=== PATIENT | female | born 1995 | race Caucasian/White ===

== ENCOUNTER 2019-11-02 02:00 | Inpatient (IN) | payer MEDICAID, SELFPAY ==
[2019-11-02] VITALS (133 sets, daily range): BP systolic 0–177; BP diastolic 0–108; PULSE 57–112; RESP 16–20; TEMP 36.3–38.6; O2SAT 99–100; BMI 37.2
[2019-11-02] MEDS: dextrose 5%-lactated ringers 1,000 ML 125 ML IV ×2 (02:45→15:48)
[2019-11-02] MEDS: ampicillin 2,000 MG in sodium chloride 0.9% (plus) 50 ML 100 MG IV (02:46)
[2019-11-02 02:52] LABS: Basophils % 0.1 %; Eosinophils % 0.1 %; Hematocrit 37.3 % (37.0-47.0); Hemoglobin 12.5 g/dL (11.5-15.3); Lymphocytes # 1.6 10^3/uL (0.8-4.8); Mean Corpuscular HGB Conc 33.5 g/dL (30.0-36.0); Mean Corpuscular Hemoglobin 30.3 pg (28.0-34.0); Mean Corpuscular Volume 90.5 fL (81-99); Mean Platelet Volume 11.3 fL (7.4-10.4); Monocytes % 3.8 %; Neutrophils # 23.4 10^3/uL (1.8-7.7); Neutrophils % 89.2 %; Nucleated Red Blood Cells % 0 %; Platelet Count 265 10^3/cmm (130-400); Red Blood Count 4.12 10^6/uL (4.1-5.3); Red Cell Distribution Width 14.2 % (12.1-15.1); White Blood Count 26.2 10^3/uL (4.0-10.0)
[2019-11-02] MEDS: fentaNYL 50 mcg/mL INJ 2mL IV ×6 (03:49→09:49)
[2019-11-02] MEDS: ampicillin 1,000 MG in sodium chloride 0.9% (plus) 50 ML 100 MG IV ×4 (05:56→18:09)
--- NOTE | 2019-11-02 07:39 | PC.NURSE ---
URGED PT TO CHANGE POSITION FREQUENTLY, DISCUSSED IMPORTANCE OF POSITION CHANGES IN LABOR/DELIVERY, ALSO DISCUSSED PAIN MED ADMINISTRATION. UNDERSTANDING VOICED, PT REFUSING ANY POSITION OTHER THAN THRONE AT THIS TIME. DISCUSSED WITH PT SHE CAN HAVE FENTANYL PER PROTOCOL AND THEN WE NEEDED TO TRY POSITION CHANGES, PT AGREED. ICE CHIPS PROVIDED
[2019-11-02] MEDS: dextrose 5%-lactated ringers 1,000 ML 500 ML IV (08:52)
[2019-11-02] MEDS: lactated ringers 1,000 ML 999 ML IV ×4 (09:27→21:55)
--- NOTE | 2019-11-02 10:14 | PC.NURSE ---
Dr Andino called for epidural placement
--- NOTE | 2019-11-02 10:40 | ANES.PREANE2 ---
Pre-Anesthetic Assessment Pre-Anesthetic Assessment: Height/Weight: Height 1.55 m Weight 89.358 kg Temp Pulse Resp BP Pulse Ox 99.1 F 66 17 156/73 99 11/02/19 11:47 11/02/19 11:41 11/02/19 11:47 11/02/19 11:41 11/02/19 11:35 Preop Diagnosis: IUP Proposed Procedure: labor epidural Was Beta Nikki taken within 24 hours: N/A Social: Social History: No alcohol and No tobacco Exam: Pre-Anes Outpt Exam: alert, oriented x 3, clear to auscultation bilaterally and regular rate & rhythm Airway: Submandibular: WNL Cervical ROM: WNL MP: 2 History/ROS: No significant history except as noted Pulmonary: Pulmonary: None reported CV/HEM: CV/HEM: None reported : : None reported Hepatic: Hepatic: None reported GI: GI: None reported Metabolic: Metabolic: Thyroid Musc/skel: Musc/skel: None reported Neuropsych: Neuropsych: None reported Anesthetic Plan: ASA status: 2 Anesthesia: Anesthesia Evaluation and MAC Risk of > 500 ml blood loss (7ml/kg in children): No Meds/Allergies Current Medications: Current Medications Generic Name Dose Route Start Last Admin Trade Name Freq PRN Reason Stop Dose Admin Fentanyl 25 - 100 mcg 11/02/19 01:59 11/02/19 09:49 Sublimaze IV 100 mcg Q1H PRN Administration SEVERE PAIN Lactated Ringer's 1,000 mls @ 999 m ls/hr 11/02/19 01:59 11/02/19 10:34 Lactated Ringers IV 999 mls/hr .Q1H1M PRN Administration Per L&D Rescitati on Protocol Ampicillin Sodium 1,000 mg/ 50 mls @ 100 mls/ hr 11/02/19 06:01 11/02/19 10:13 Sodium Chloride IV Infused Q4H PHILIP Infusion Protocol Ampicillin Sodium 2,000 mg/ 50 mls @ 100 mls/ hr 11/02/19 02:00 11/02/19 02:46 Sodium Chloride IV 100 mls/hr ONCE PHILIP Administration Protocol Dextrose/Lactated Ringer's 1,000 mls @ 125 m ls/hr 11/02/19 02:00 11/02/19 08:52 Dextrose 5%-Lact ated Ringers IV 500 mls/hr .Q8H PHILIP Administration Ropivacaine 200 mg in 100 mls @ 6 mls/hr 11/02/19 08:45 11/02/19 11:44 Naropin Premix EPIDURAL 13 mls/hr .[id number] PHILIP Administration PFSH Anesthesia Female Reproductive History: : 1 Data Anesthesia CBC & Chem 7: 11/02/19 02:10 Other Labs: Laboratory Results - last 48 hr 11/02/19 02:10 WBC 26.2 H RBC 4.12 Hgb 12.5 Hct 37.3 MCV 90.5 MCH 30.3 MCHC 33.5 RDW 14.2 Plt Count 265 MPV 11.3 H Neut % (Auto) 89.2 Lymph % (Auto) 6.0 [place] % (Auto) 3.8 Eos % (Auto) 0.1 Baso % (Auto) 0.1 Neut # (Auto) 23.4 H Lymph # (Auto) 1.6 [place] # (Auto) 1.0 H Eos # (Auto) 0.0 Baso # (Auto) 0.0 Nucleated RBC % (auto) 0 Nucleated RBCs # 0.0 Cardiac Studies: No Data to Display
--- NOTE | 2019-11-02 11:07 | ANES.PROC ---
Anesthesia Procedures Procedure/Date: 11/02/19 Epidural: Time Out Performed: Yes Consents Signed: Procedure Consent Consent: requested by attending/covering physician Lumbar Level: L3-L4 Epidural position: sitting Epidural procedure: sterile prep of area, 1% lidocaine to numb the area, 18 g needle, negative for paresthesia passed, neg for paresthesia, test dose given, 1.5% xylocaine 1:200k epi (4ml), placed PCEA, no systemic response, sterile dressing applied, L.U.D. no apparent complications and 0.2% Ropiavacaine @ mls/hr (13)
[2019-11-02] MEDS: oxytocin 30 UNIT/500 ML BAG IV (13:04)
[2019-11-02] MEDS: acetaminophen 325 mg Tablet 650 MG PO (20:42)
[2019-11-02 21:02] LABS: Basophils # 0.1 10^3/uL (0.0-0.1); Basophils % 0.2 %; Eosinophils # 0.1 10^3/uL (0.0-0.8); Eosinophils % 0.2 %; Hematocrit 35.5 % (37.0-47.0); Hemoglobin 11.6 g/dL (11.5-15.3); Lymphocytes # 1.4 10^3/uL (0.8-4.8); Lymphocytes % 4.3 %; Mean Corpuscular HGB Conc 32.7 g/dL (30.0-36.0); Mean Corpuscular Hemoglobin 30.4 pg (28.0-34.0); Mean Corpuscular Volume 92.9 fL (81-99); Mean Platelet Volume 11.3 fL (7.4-10.4); Monocytes # 1.3 10^3/uL (0.2-0.9); Monocytes % 3.9 %; Neutrophils # 29.7 10^3/uL (1.8-7.7); Neutrophils % 90.8 %; Nucleated Red Blood Cells % 0 %; Platelet Count 243 10^3/cmm (130-400); Red Blood Count 3.82 10^6/uL (4.1-5.3); Red Cell Distribution Width 14.7 % (12.1-15.1)
[2019-11-02 21:38] LABS: White Blood Count 32.7 10^3/uL (4.0-10.0)
[2019-11-02] MEDS: metoclopramide 5 mg/mL SDV 2 mL 10 MG IVP (22:05)
[2019-11-02] MEDS: citric acid-sodium citrate 30 mL UDC PO (22:05)
--- NOTE | 2019-11-02 22:26 | PM.OBGYHP ---
Providers/Chief Complaint Admitting Physician: Glen Atwood MD Primary Care Provider: Alexandra Clemons DO Chief Complaint: labor HPI REGIONAL OPERATIONS MANAGER History of Present Illness Teresita Vega is a 24 year old 1 40-week and 2-day female who presented to the hospital in active labor. Shortly after arrival she had spontaneous rupture of membranes approximately 21 hours prior to delivery. Meconium was noted an epidural was placed later on. She was noted to have multiple fevers after the epidural had been placed. Pitocin was placed to augment her labor. Despite those interventions, she has progressed to 6-7 cm and maintained at 6-7 cm for 6 hours without making further progress. The baby continued to have space between the baby's head and the cervix. Because of the patient's lack of progress, as well as multiple other factors including fever, elevated white blood Cell count, and lack of cervical change the decision was made to proceed with a section. Present Details : 1 Labs Rubella: Non-Immune RPR: Negative GBS: Positive Review of Systems General: Reports: 10 or more systems reviewed and unremarkable except in HPI and below Const: Reports: fever Card: Denies: chest pain or irregular heart rhythm Resp: Denies: shortness of breath Medications/Allergies Home Medications Medication Instructions Recorded Confirmed Last Taken Type [place] Thyroid 11/02/19 10/26/19 History [id number] fumarate-FA tab PO 11/02/19 10/26/19 History [] Allergies Allergy/AdvReac Type Severity Reaction Status Date / Time No Known Allergies Allergy Verified 11/02/19 00:41 Vitals/I&O/Wt Last Vital Signs Temp 100.5 F H 11/02/19 19:57 Pulse 83 11/02/19 22:11 Resp 17 11/02/19 17:46 BP 133/76 11/02/19 22:11 Pulse Ox 99 11/02/19 11:35 11/02/19 11/02/19 11/02/19 06:59 14:59 22:59 Intake Total 250 / 250 3059.284 / 3059.284 1158.9 / 4218.184 Output Total 600 / 600 Balance 250 / 250 3059.284 / 3059.284 558.9 / 3618.184 Weight last 48 hrs Weight 197 lb Weight 197 lb Weight 197 lb Weight 197 lb Physical Exam Const: COMMON NORMALS: oriented x3 and alert HENMT: COMMON NORMALS: moist oral mucous membranes HEAD & SCALP: normal to inspection Chest: COMMONS NORMALS: inspection of chest normal Resp: COMMON NORMALS: clear to auscultation bilaterally AUSCULTATION: clear to auscultation bilaterally Cardio: COMMON NORMALS: regular rate and regular rhythm RATE: regular rate RHYTHM: regular rhythm GI: INSPECTION: Yes normal to inspection and Yes other (Gravid) Extremity: COMMON NORMALS: normal to inspection GENERAL: Yes edema (Trace) Neuro: COMMON NORMALS: oriented x3, moves all extremities and no sensory deficits noted SENSORIUM/ORIENTATION: Yes alert Psych: COMMON NORMALS: mental status grossly normal Skin: COMMON NORMALS: no rashes or lesions noted GENERAL SKIN EXAM: no rashes or lesions noted Urinary Catheter Management^: Catalan: Cath Placed During This Visit: yes Reason for Continuing Indwelling Catheter: Other Urinary Catheter Date of Insertion: 11/02/19 Urinary Catheter Time of Insertion: 11:24 Data : 11/02/19 20:30 A&P Assessment and plan (1) 39 weeks gestation of : Status: Acute (2) Failure to progress in labor: I discussed the reasons for proceed with a with the patient her and her mother who is on cell phone. We also discussed the risks of bleeding, infection, and damage to intra-abdominal organs. The patient understands the risks and wished to proceed. Status: Acute (3) Maternal fever during labor: Status: Acute Attestations Medical Necessity Statement*: I anticipate routine and post care. Coding Level of Care Code Acute Ict Customer Support Officer for Chg Fwd Diagnoses 39 weeks gestation of Z3A.39 Failure to progress in labor O62.2 Maternal fever during labor O75.2
--- NOTE | 2019-11-02 23:50 | ANE.PACU2 ---
 Inpatient post-anesthesia follow up: Airway intact: Yes Vital signs: Temperature 100.5 F Pulse Rate 75 Respiratory Rate 17 Blood Pressure 142/71 Pulse Oximetry 99 Oxygen Delivery Me thod Room Air Oxygen Flow Rate Fraction of Inspir ed Oxygen Hydration adequate: Yes Nausea and vomiting: No Mental status: Baseline
--- NOTE | 2019-11-02 23:53 | PM.OP ---
Operative Report Date of procedure: November 02, 2019 Pre-op Diagnosis: 1. 40-week gestation age female 2. Failure to progress 3. Maternal fever Post-op diagnosis: same Procedure Done: Low transverse section Specimens removed/disposition: 1. Male with a weight of 8 pounds 6 ounces and Apgars of 8 9 2. Placenta with a three-vessel cord delivered intact Pathology: none sent Surgeon: Glen Atwood Anesthesia: Epidural Estimated blood loss (mL): 1,200 IV fluids (mL): 1,200 Complications: None Condition: stable Disposition: floor Brief History: Refer to history and physical Procedure: The patient was brought back to the operating room where she was prepped and draped in usual sterile fashion. Anesthesia was found to be adequate. A lower transverse skin incision was then made with a #10 blade. I then dissected down to the underlying subcutaneous tissue until arriving at the prerectal fascia. The fascia was then nicked with the scalpel bilaterally. The fascial incisions were then carried laterally with Jensen scissors. Attention was then turned to the superior aspect of the incision which was grasped with kochers and tented up away from the underlying rectus abdominis muscles. The muscles were then dissected away from the fascia manually, and later with Jensen scissors. Attention was then turned to the inferior aspect of the incision, and the fascia was dissected away from the underlying muscle in similar fashion. The rectus abdominis muscles were then spread manually. The peritoneum was entered manually. Excellent visualization of the uterus was noted. A lower transverse uterine incision was then made with a #10 blade. Upon arriving at the intrauterine cavity, the uterine incision was then extended manually. The was noted to be in vertex position. The baby was delivered without difficulty. After delivery of the head, the mouth and nose were suctioned at the site of the incision. There was no meconium. There was no nuchal cord. The remainder of the body was then delivered and placed on the abdomen. The cord was cut and clamped. The baby was then handed to the waiting nurse. The placenta was removed intact. The uterus was externalized. The intrauterine cavity was cleansed of any remaining debris. The uterine incision was reapproximated in 2 layers. The first layer was performed with 0 Vicryl in a running locked stitch. The second layer was an imbricating stitch also using 0 Vicryl. The uterus was replaced into the abdomen. The peritoneum was then irrigated with warm saline. I reexamined the uterine incision and found it to be hemostatic. The rectus abdominis muscles were then reapproximated using 0 Vicryl in a running stitch. The fascia was then reapproximated using 0 Vicryl in running stitch. The subcutaneous tissue was then reapproximated using 0 Vicryl in a running stitch. The skin was reapproximated using leidy. A sterile dressing was placed. All counts were correct x2. Both the mother and baby were in stable condition.
[2019-11-03] VITALS (21 sets, daily range): BP systolic 93–128; BP diastolic 57–83; PULSE 75–128; RESP 16–18; TEMP 36.4–37.2; O2SAT 95–100
[2019-11-03] MEDS: dextrose 5%-lactated ringers 1,000 ML 125 ML IV (04:31)
[2019-11-03] MEDS: ketorolac 30 mg/mL INJ IVP (06:04)
[2019-11-03 13:09] LABS: Hematocrit 28.1 % (37.0-47.0); Hemoglobin 8.9 g/dL (11.5-15.3); Mean Corpuscular HGB Conc 31.7 g/dL (30.0-36.0); Mean Corpuscular Hemoglobin 29.8 pg (28.0-34.0); Mean Platelet Volume 11.1 fL (7.4-10.4); Platelet Count 256 10^3/cmm (130-400); Red Blood Count 2.99 10^6/uL (4.1-5.3); Red Cell Distribution Width 14.8 % (12.1-15.1); White Blood Count 25.6 10^3/uL (4.0-10.0)
--- NOTE | 2019-11-04 07:04 | ANE.PACU2 ---
 Inpatient post-anesthesia follow up: Airway intact: Yes Vital signs: Temperature 97.5 F Pulse Rate 100 Respiratory Rate 16 Blood Pressure 101/66 Pulse Oximetry 96 Oxygen Delivery Me thod Room Air Oxygen Flow Rate 97 Fraction of Inspir ed Oxygen Hydration adequate: Yes Mental status: Baseline Additional Comments: no signs of infection at neuraxial site, no lower extremity weakness, no difficulty urinating, no headaches. patient informed of red flags to watch out for (loss of bowel or bladder control, increased lower extremity weakness, fever, or signs of infection at epidural site), in setting of increased WBC plus subsequent development of fever during labor. Patient informed to go to to ER if any of these s/s develop.
--- NOTE | 2019-11-04 08:06 | PM.OBGYDC ---
Discharge Providers WAITER/WAITRESS FIRST CLASS Date of Admission: 11/02/19 02:00 Date of Discharge: 11/04/19 Attending Provider at Admission: Glen Atwood MD Attending Provider at Discharge: Glen Atwood MD Primary Care Provider: Alexandra Clemons DO Diagnoses at Discharge Discharge Diagnosis (1) 39 weeks gestation of : Status: Acute (2) Failure to progress in labor: Status: Acute (3) Maternal fever during labor: Status: Acute Reason for Visit Reason for Visit: Reason For Visit: labor Hospital Course Hospital Course: The patient presented to the hospital in active labor. Spontaneous rupture membranes occurred. An epidural was placed. The patient then progressed to 6 to 7 cm. She then stalled out at that point for about 6 hours. She had a fever as well as an elevating white blood count. The baby's head was also not firmly against the cervix. Given the amount of time that the patient was in labor, as well as the other concerns regarding her fever and her white blood count, the decision was made to proceed with a section. The was unremarkable. The patient's course was also unremarkable. She had no further fevers after the . She advanced her diet well. She passed flatus. Her pain was well controlled. Her bleeding was within normal limits. Information Peripartum Data: Delivery Method: Section Physical Exam Narrative: EXAM NARRATIVE: She is in no acute distress Lungs are clear auscultation bilaterally Her heart has a regular rate and rhythm Her fundus is below the umbilicus and firm Her dressing is clean, dry and intact Her extremities have trace edema Urinary Catheter Management^: Catalan: Cath Placed During This Visit: yes, but has since been removed by the nurse Reason for Continuing Indwelling Catheter: Decision to DC Catheter Urinary Catheter Date of Insertion: 11/02/19 Urinary Catheter Time of Insertion: 11:24 Date Urinary Catheter Removed: 11/03/19 Time Urinary Catheter Discontinued: 10:48 Discharge Data Data Completed and Pending: Labs from last 24 hours 11/03/19 12:55 WBC 25.6 H RBC 2.99 L Hgb 8.9 L Hct 28.1 L MCV 94.0 MCH 29.8 MCHC 31.7 RDW 14.8 Plt Count 256 MPV 11.1 H Vitals: Last Vital Signs Temp 97.5 F L 11/03/19 22:00 Pulse 100 11/03/19 22:00 Resp 16 11/03/19 22:00 BP 101/66 11/03/19 22:00 Pulse Ox 96 11/03/19 22:00 Discharge Plan Discharge Patient Disposition: Home, Self-Care Condition: Stable Prescriptions: New ibuprofen 800 mg Tablet 800 mg PO TID Qty: 45 RF: 0 hydrocodone-acetaminophen 5-325 mg Tablet 1 - 2 tab PO Q6H PRN (Reason: Moderate To Severe Pain) Qty: 30 RF: 0 Continued 28-800 mg-mcg Tablet 1 tab PO DAILY RF: 0 levothyroxine 88 mcg Tablet 88 mcg PO DAILY RF: 0 Discharge Orders: Discharge Order (Routine); Ordered 11/04/19 Ordered By: Glen Atwood Referrals: Glen Atwood MD [Family Provider] - 11/10/19 8:45 am Discharge Diet: Advance as tolerated Discharge Activity: Limit activity as instructed Patient Instructions: Sponge Bathing Your Baby (GEN), Tub Bathing Your Baby (GEN), Shaken Baby Syndrome (GEN), Breast Care for the Non-breast Feeding Woman (GEN), OB - Lucho, OB Discharge Report, OB Food/Drug Interaction Guide Discharge Date/Time: 11/04/19 14:15 Discharge Attestations WAITER/WAITRESS FIRST CLASS Time Spent in Discharge Care*: less than 30 min Coding Level of Care Code Acute Rental Sales Representative for Chg Fwd Diagnoses 39 weeks gestation of Z3A.39 Failure to progress in labor O62.2 Maternal fever during labor O75.2
[2019-11-04] MEDS: prenatal vitamin Capsule 1 CAP PO (10:26)
[2019-11-04] MEDS: docusate sodium 100 mg Capsule PO (10:26)
[2019-11-04 10:29] VITALS: BP 112/75; PULSE 90; RESP 17; TEMP 36.6; O2SAT 98
[2019-11-04] MEDS: measles,mumps,rubella pf Vial (w/diluent) 0.5 ML SUBCUT (12:18)
[2019-11-04 14:00] VITALS: BP 125/71; PULSE 79; RESP 18; TEMP 36.9; O2SAT 98
[2019-11-04 14:10] VITALS: BP 125/71; PULSE 79; RESP 18; TEMP 36.9; O2SAT 98
== END 2019-11-04 14:15 | disposition home or self-care (01) | DRG 787 ==
LOC: OPOB 07:10
PROVIDERS: Admitting Provider Family Medicine; Family Provider Family Medicine; PCP Family Medicine; Visit Provider Family Medicine
PROC: 10D00Z1 Extraction of Products of Conception, Low, Open Approach (ICD-10-PCS; CPT 59514; principal; 2019-11-02 22:30)
DX: O32.4XX0 Maternal care for high head at term, not applicable or unspecified (principal); O75.2 Pyrexia during labor, not elsewhere classified; O99.284 Endocrine, nutritional and metabolic diseases complicating childbirth; E03.9 Hypothyroidism, unspecified; Z3A.40 40 weeks gestation of pregnancy; Z37.0 Single live birth
CPT/HCPCS: 12345; 36415; 51702; 59409; 85025; 85027; 90707; 96372; 96374; 96375; 99211; J0290; J0690; J1885; J2001; J2274; J2590; J2765; J2795; J3010

== ENCOUNTER 2021-04-10 04:55 | Inpatient (IN) | payer BC, MEDICAID, SELFPAY ==
--- NOTE | 2021-03-22 12:46 | ANES.PREANE2 ---
Pre-Anesthetic Assessment Pre-Anesthetic Assessment: Height/Weight: Height 1.55 m Preop Diagnosis: 1. 40-week gestation age female 2. Failure to progress 3. Maternal fever Proposed Procedure: Operation Date: 04/10/21 07:00 Proposed Procedures p Section Repeat With Tubal Z98.891 [id number](Not Applicable) - Glen Atwood MD Familial anesthetic complications: None Social: Social History: No alcohol and No tobacco Exam: Pre-Anes Outpt Exam: alert, oriented x 3, clear to auscultation bilaterally and regular rate & rhythm Airway: Cervical ROM: WNL MP: 2 Dentition: Other (missing) Metabolic: Metabolic: Morbid obesity and Thyroid Anesthetic Plan: ASA status: 3 Anesthesia: Regional (specify below) (spinal) Risk of > 500 ml blood loss (7ml/kg in children): Yes, adequate IV access and fluids planned Data Anesthesia Cardiac Studies: No Data to Display
--- NOTE | 2021-03-31 16:22 | PC.RESP ---
SMOKING CESSATION INFORMATION SENT TO PATIENT.
[2021-04-10] VITALS (28 sets, daily range): BP systolic 77–134; BP diastolic 56–98; PULSE 59–106; RESP 16; TEMP 36.2–37.4; O2SAT 96–100; BMI 31.2
[2021-04-10 05:35] LABS: Basophils % 0.2 %; Eosinophils # 0.1 10^3/uL (0.0-0.8); Eosinophils % 1.3 %; Hematocrit 31.2 % (37.0-47.0); Hemoglobin 9.7 g/dL (11.5-15.3); Lymphocytes # 2.4 10^3/uL (0.8-4.8); Lymphocytes % 22.5 %; Mean Corpuscular HGB Conc 31.1 g/dL (30.0-36.0); Mean Corpuscular Hemoglobin 25.9 pg (28.0-34.0); Mean Corpuscular Volume 83.2 fl (81-99); Mean Platelet Volume 10.8 fL (7.4-10.4); Monocytes # 0.6 10^3/uL (0.2-0.9); Monocytes % 5.4 %; Neutrophils # 7.63 10^3/uL (1.8-7.7); Neutrophils % 70.3 %; Nucleated Red Blood Cells % 0 %; Platelet Count 316 10^3/cmm (130-400); Red Blood Count 3.75 10^6/uL (4.1-5.3); Red Cell Distribution Width 13.9 % (12.1-15.1); White Blood Count 10.9 10^3/uL (4.0-10.0)
[2021-04-10] MEDS: lactated ringers 1,000 ML 999 ML IV ×3 (05:38→09:08)
[2021-04-10] MEDS: citric acid-sodium citrate 30 mL UDC PO (06:36)
[2021-04-10] MEDS: famotidine 20 mg/2 mL INJ IVP (06:36)
[2021-04-10] MEDS: metoclopramide 5 mg/mL SDV 2 mL 10 MG IVP (06:37)
--- NOTE | 2021-04-10 06:43 | PM.OPHPUD ---
Labor & Delivery H&P Update Date of Procedure: April 10, 2021 Date H&P Performed: 04/07/21 H&P update information: I have reviewed H&P completed within last 30 days, I have examined patient prior to procedure, No changes to prior documentation and H&P to be scanned into chart Preop diagnosis: 39-week gestation female presenting for a repeat section and a tran Planned procedure: Operation Date: 04/10/21 07:00 Proposed Procedures p Section Repeat With Tubal Z98.891 [id number](Not Applicable) - Glen Atwood MD Related Problem List Diagnoses (1) 39 weeks gestation of : (2) History of : (3) Encounter for sterilization:
--- NOTE | 2021-04-10 06:48 | P.ANESUD_ITS ---
Pre-Anesthetic Update Pre-Anesthetic Assessment: Date of Surgery/Procedure: 04/10/21 Preop Suzi gnosis: 39-week gestation female presenting for a repeat section and a tran Proposed Procedure: Operation Date: 04/10/21 07:00 Proposed Procedures p Section Repeat With Tubal Z98.891 [id number](Not Applicable) - Glen Atwood MD Any changes to Pre-Anesthetic Assessment?: No Last Intake: Intake Last Liquid Date 04/09/21 Last Liquid Time 21:00 Last Solid Date 04/09/21 Last Solid Time 21:00 Labs Last 48hrs: Laboratory Results - last 48 hr 04/10/21 04/10/21 05:25 05:25 WBC 10.9 H RBC 3.75 L Hgb 9.7 L Hct 31.2 L MCV 83.2 MCH 25.9 L MCHC 31.1 RDW 13.9 Plt Count 316 MPV 10.8 H Neut % (Auto) 70.3 Lymph % (Auto) 22.5 [place] % (Auto) 5.4 Eos % (Auto) 1.3 Baso % (Auto) 0.2 Neut # (Auto) 7.63 Lymph # (Auto) 2.4 [place] # (Auto) 0.6 Eos # (Auto) 0.1 Baso # (Auto) 0.0 Nucleated RBC % (a uto) 0 Nucleated RBCs # 0.0 Blood Type A Positive Rho(D) Type Positive Antibody Screen Negative Vitals: Pulse Rate 74 04/10/21 05:02 Pulse Rhythm 04/10/21 05:45 Pulse Strength 3+ Normal 04/10/21 05:45 Respiratory Effort Non-Labored 04/10/21 05:45 Respiratory Depth Normal 04/10/21 05:45 Respiratory Patter n 04/10/21 05:45 Blood Pressure 127/83 04/10/21 05:02 Oxygen Delivery Me thod 04/10/21 05:45 Exam: Pre-Anes Outpt Exam: alert, oriented x 3, clear to auscultation bilaterally and regular rate & rhythm Cardiac Studies: No Data to Display
--- NOTE | 2021-04-10 08:11 | PM.PACU ---
PACU note PACU note: VSS, Good respiratory effort, report to OPERATOR AUTOMATED PROCESS Post-Anesthesia Exam: awake
--- NOTE | 2021-04-10 08:11 | P.PCN_ITS ---
PACU note PACU note: VSS, Good respiratory effort, report to PARTS CATALOGER Post-Anesthesia Exam: awake
--- NOTE | 2021-04-10 08:32 | P.OP_ITS ---
Operative Report Date of procedure: April 10, 2021 Pre-op Diagnosis: 39-week gestation female presenting for a repeat section and a tran Post-op diagnosis: same Procedure Done: 1. Repeat section 2. intraoperative bilateral tubal ligation Specimens removed/disposition: 1. Male with Apgars of 6 8 and 9 and a weight of 6 pounds 14 ounces Pathology: none sent Surgeon: Glen Atwood Anesthesia: Other (Spinal) Estimated blood loss (mL): 600 Complications: None Condition: stable Disposition: floor (Obstetric) Procedure: The patient was brought back to the operating room where she was prepped and draped in usual sterile fashion. Anesthesia was found to be adequate. A lower transverse skin incision was then made with a #10 blade. I then dissected down to the underlying subcutaneous tissue until arriving at the prerectal fascia. The fascia was then nicked with the scalpel bilaterally. The fascial incisions were then carried laterally with Jensen scissors. Attention was then turned to the superior aspect of the incision which was grasped with kochers and tented up away from the underlying rectus abdominis muscles. The muscles were then dissected away from the fascia manually, and later with Jensen scissors. Attention was then turned to the inferior aspect of the incision, and the fascia was dissected away from the underlying muscle in similar fashion. The rectus abdominis muscles were then spread manually. The peritoneum was entered manually. Excellent visualization of the uterus was noted. A lower transverse uterine incision was then made with a #10 blade. Upon arriving at the intrauterine cavity, the uterine incision was then extended manually. The amniotic sac was ruptured with Allises. The was noted to be in vertex position. The baby was delivered without difficulty. After delivery of the head, the mouth and nose were suctioned at the site of the incision. There was no meconium. There was no nuchal cord. The remainder of the body was then delivered and placed on the abdomen. The cord was cut and clamped. The baby was then handed to the waiting nurse. The placenta was removed intact. The uterus was externalized. The intrauterine cavity was cleansed of any remaining debris. The uterine incision was reapproximated in 2 layers. The first layer was performed with 0 Vicryl in a running locked stitch. The second layer was an imbricating stitch also using 0 Vicryl. Attention was then turned to the left fallopian tube which was ligated cut and cauterized in a modified [place] fashion. Attention was then turned to the right fallopian tube which was also ligated cut and cauterized in similar fashion. The uterus was replaced into the abdomen. The peritoneum was then irrigated with warm saline. I reexamined the uterine incision and found it to be hemostatic. The rectus abdominis muscles were then reapproximated using 0 Vicryl in a running stitch. The fascia was then reapproximated using 0 Vicryl in running stitch. The skin was reapproximated using leidy. A sterile dressing was placed. All counts were correct x2. Both the mother and baby were in stable condition. Associated Problem List Diagnoses (1) Encounter for sterilization: (2) History of :
[2021-04-10] MEDS: docusate sodium 100 mg Capsule PO ×2 (10:39→18:24)
[2021-04-10] MEDS: dextrose 5%-lactated ringers 1,000 ML 125 ML IV (12:07)
[2021-04-10] MEDS: ketorolac 30 mg/mL INJ IVP (15:58)
[2021-04-10] MEDS: ferrous sulfate EC 325 mg Tablet PO (18:24)
[2021-04-10] MEDS: ibuprofen 800 mg tablet PO (21:42)
[2021-04-11 01:07] LABS: Hematocrit 22.3 % (37.0-47.0); Hemoglobin 6.9 g/dL (11.5-15.3); Mean Corpuscular HGB Conc 30.9 g/dL (30.0-36.0); Mean Corpuscular Hemoglobin 26.1 pg (28.0-34.0); Mean Corpuscular Volume 84.5 fl (81-99); Mean Platelet Volume 10.4 fL (7.4-10.4); Platelet Count 207 10^3/cmm (130-400); Red Blood Count 2.64 10^6/uL (4.1-5.3); Red Cell Distribution Width 14.1 % (12.1-15.1); White Blood Count 11.7 10^3/uL (4.0-10.0)
[2021-04-11 01:15] VITALS: BP 115/89; PULSE 74; RESP 16; TEMP 36.6; O2SAT 98
[2021-04-11] MEDS: HYDROcodone-acetaminophen 5-325 mg Tablet PO (03:04)
[2021-04-11 04:15] VITALS: BP 119/77; PULSE 83; RESP 15; TEMP 36.6; O2SAT 97
--- NOTE | 2021-04-11 08:04 | P.DS_ITS ---
Discharge Providers REIKI PRACTITIONER Date of Admission: 04/10/21 04:55 Date of Discharge: 04/13/21 Attending Provider at Admission: Glen Atwood MD Attending Provider at Discharge: Glen Atwood MD Primary Care Provider: Glen Atwood MD Diagnoses at Discharge Discharge Diagnosis (1) Encounter for sterilization: Status: Resolved (2) History of : Status: Resolved Reason for Visit Reason for Visit: Hospital Course Hospital Course The patient presented to the hospital for a repeat scheduled and tubal ligation. Her procedure was unremarkable. Her course was also unremarkable. Her bleeding was within normal limits. Her pain was well controlled. She passed flatus. She tolerated a regular diet without difficulty. Information Peripartum Data: Infant Delivery Method: Physical Exam Narrative: EXAM NARRATIVE: She is in no acute distress Lungs are clear auscultation bilaterally Her heart has a regular rate and rhythm Her fundus is below the umbilicus and firm Her dressing is clean, dry and intact Her extremities have trace edema Urinary Catheter Management^: Catalan: Cath Placed During This Visit: yes, but has since been removed by the nurse Reason for Continuing Indwelling Catheter: Accurate Measurement of Urinary Output in Critically Ill Patients Urinary Catheter Date of Insertion: 04/10/21 Urinary Catheter Time of Insertion: 07:05 Date Urinary Catheter Removed: 04/11/21 Time Urinary Catheter Discontinued: 00:00 Discharge Data Data Completed and Pending: Pending at discharge Category Date Time Status Pathology: Surgic al [PTH] Routine Pth 04/10/21 07:41 Received Labs from last 24 hours 04/11/21 01:00 WBC 11.7 H RBC 2.64 L Hgb 6.9 L Hct 22.3 L MCV 84.5 MCH 26.1 L MCHC 30.9 RDW 14.1 Plt Count 207 D MPV 10.4 Vitals: Last Vital Signs Temp 97.9 F 04/11/21 04:15 Pulse 83 04/11/21 04:15 Resp 15 04/11/21 04:15 BP 119/77 04/11/21 04:15 Pulse Ox 97 04/11/21 04:15 Discharge Plan Discharge Patient Disposition: Home Condition: Stable Prescriptions: New ibuprofen 800 mg Tablet 800 mg PO TID Qty: 45 RF: 0 hydrocodone-acetaminophen 5-325 mg Tablet 1 tab PO Q4H PRN (Reason: Moderate To Severe Pain) Qty: 28 RF: 0 ferrous sulfate 325 mg (65 mg iron) Tablet,Delayed Release (Dr/Ec) 325 mg PO BID Qty: 60 RF: 1 Continued 28-800 mg-mcg Tablet 1 tab PO DAILY RF: 0 levothyroxine 88 mcg Tablet 88 mcg PO DAILY RF: 0 Discontinued ibuprofen 800 mg Tablet 800 mg PO TID Qty: 45 RF: 0 hydrocodone-acetaminophen 5-325 mg Tablet 1 - 2 tab PO Q6H PRN (Reason: Moderate To Severe Pain) Qty: 30 RF: 0 Discharge Orders: Discharge Order (Routine); Ordered 04/11/21 Ordered By: Glen Atwood Referrals: Glen Atwood MD [Primary Care Provider] - 04/18/21 8:30 am (4-7 day appointment his on 04/18/2021 at 8:30 am. 6 week appointment is scheduled on 05/23/2021 at 11:45 am . ) Discharge Diet: Usual diet Discharge Activity: Limit activity as instructed Patient Instructions: Depression (GEN), Preeclampsia During (DC), Bleeding (DC), OB - Angelic/Ollie, OB Discharge Report, OB Anesthesia Instructions, OB Food/Drug Interaction Guide, Opioid Safety, OB Home Care, OB Proud Parent Packet Discharge Attestations REIKI PRACTITIONER Time Spent in Discharge Care*: less than 30 min Coding Level of Care Code Acute Machine Cloth Measurer for Marissag Fwd Diagnoses Encounter for sterilization Z30.2 History of Z98.891
[2021-04-11] MEDS: ibuprofen 800 mg tablet PO (09:46)
[2021-04-11] MEDS: prenatal vitamin Capsule 1 CAP PO (09:46)
[2021-04-11] MEDS: ferrous sulfate EC 325 mg Tablet PO (09:46)
[2021-04-11] MEDS: docusate sodium 100 mg Capsule PO (09:46)
[2021-04-11 09:47] VITALS: BP 119/77; PULSE 88; RESP 16; TEMP 36.8; O2SAT 100
[2021-04-11 14:30] VITALS: BP 122/80; PULSE 108; RESP 17; TEMP 36.8; O2SAT 97
== END 2021-04-11 14:36 | disposition home or self-care (01) | DRG 785 ==
PROVIDERS: Admitting Provider Family Medicine; PCP Family Medicine; Visit Provider Family Medicine
PROC: 10D00Z1 Extraction of Products of Conception, Low, Open Approach (ICD-10-PCS; CPT 59514; principal; 2021-04-10 07:00)
DX: O34.211 Maternal care for low transverse scar from previous cesarean delivery (principal); Z3A.39 39 weeks gestation of pregnancy; Z30.2 Encounter for sterilization; O99.284 Endocrine, nutritional and metabolic diseases complicating childbirth; E03.9 Hypothyroidism, unspecified
CPT/HCPCS: 12345; 36415; 51702; 58611; 59025; 59409; 85025; 85027; 86850; 86900; 88302; 96374; J1885; J2274; J2370; J2765; J3490

== ENCOUNTER 2023-11-07 18:42 | Emergency (ER) | payer BC, MEDICAID, SELFPAY ==
[2023-11-07 18:46] VITALS: BP 149/89; PULSE 71; RESP 17; TEMP 36.8; O2SAT 98; BMI 36.6
--- NOTE | 2023-11-07 18:51 | ED_ITS ---
HPI - Fall General: Chief Complaint: Fall Stated Complaint: Fall, Left hip and right hand pain Time Seen by Provider: 11/07/23 18:51 History of Present Illness: 28-year-old female comes in today for an injury that occurred just prior to arrival. Patient had slipped on a toy causing her to fall and catch herself with her right hand. Patient reports left hip pain and right hand pain. Patient does have some bruising to the thenar aspect of the hand. Patient has some tenderness to the lateral left hip. Review of Systems General: Reports: 10 or more systems reviewed and unremarkable except in HPI and below Musc: Reports: extremity pain Physical Exam Const: COMMON NORMALS: alert HENMT: COMMON NORMALS: normocephalic HEAD & SCALP: normocephalic Neck/C-Spine: COMMON NORMALS: full ROM Resp: COMMON NORMALS: normal respiratory effort and clear to auscultation bilaterally AUSCULTATION: clear to auscultation bilaterally Cardio: COMMON NORMALS: regular rate and regular rhythm RATE: regular rate RHYTHM: regular rhythm Back/Pelvis: COMMON NORMALS: thoracic and lumbar spine normal to inspection Extremity: COMMON NORMALS: full ROM Neuro: SENSORIUM/ORIENTATION: Yes alert Skin: COMMON NORMALS: turgor normal GENERAL SKIN EXAM: turgor normal Course Vital Signs: Vital signs: Vital Signs Temperature 98.3 F 11/07/23 18:46 Pulse Rate 71 11/07/23 18:46 Respiratory Rate 17 11/07/23 18:46 Blood Pressure 149/89 11/07/23 18:46 Pulse Oximetry 98 11/07/23 18:46 Oxygen Delivery Me thod Room Air 11/07/23 18:46 MDM - Fall Medical Decision Making 28-year-old female comes in for evaluation of injuries to the palmar right hand and the left hip. On exam patient has some tenderness to the thenar aspect of the right palm. Patient also has some tenderness to the lateral left hip. Patient is weightbearing. No acute distress is noted. Lungs are clear to auscultation. Skin is warm and dry. No spine tenderness or step-off is noted. Differential diagnosis includes contusion, fracture, sprain. X-ray of the hip and hand noted no acute fractures. Reviewed exam with patient and family with recommendations for treatment and follow-up. XR interpretation done by ED provider, pending radiology final review Discharge Plan Discharge Patient Disposition: Home Clinical Impression: Fall from slip, trip, or stumble Qualifiers: Encounter type: initial encounter Qualified Code(s): W01.0XXA - Fall on same level from slipping, tripping and stumbling without subsequent striking against object, initial encounter Contusion of hip, left Qualifiers: Encounter type: initial encounter Qualified Code(s): S70.02XA - Contusion of left hip, initial encounter Hand sprain Qualifiers: Encounter type: initial encounter Laterality: left Qualified Code(s): S63.92XA - Sprain of unspecified part of left wrist and hand, initial encounter Condition: Stable Prescriptions: No Action 28-800 mg-mcg Tablet 1 tab PO DAILY levothyroxine 88 mcg Tablet 88 mcg PO DAILY ibuprofen 800 mg Tablet 800 mg PO TID Qty: 45 0RF hydrocodone-acetaminophen 5-325 mg Tablet 1 tab PO Q4H PRN (Reason: Moderate To Severe Pain) Qty: 28 0RF ferrous sulfate 325 mg (65 mg iron) Tablet,Delayed Release (Dr/Ec) 325 mg PO BID Qty: 60 1RF Discharge Orders: Discharge ED (Routine); Ordered 11/07/23 Ordered By: Kin Montoya Referrals: Glen Atwood MD [Primary Care Provider] - Discharge Diet: Usual diet Discharge Activity: Increase activity as tolerated Patient Instructions: Musculoskeletal Pain (ED) Activity Restrictions/Additional Instructions: Activity as tolerated. Ice packs for pain. Drink plenty of water with medications. Use acetaminophen or ibuprofen for pain. Follow-up with primary care for further instructions. Return to ED for new concerns. Coding Level of Care Code ED Human Intelligence for Elizabeth Parr
--- NOTE | 2023-11-07 18:53 | XRR_ITS ---
PROCEDURE INFORMATION: Exam: XR Right Hand Exam date and time: 11/07/2023 7:59 PM Age: 28 years old Clinical indication: Injury or trauma; Fall; Other: Unknown TECHNIQUE: Imaging protocol: Radiologic exam of the right hand. Views: 3 or more views. COMPARISON: No relevant prior studies available. FINDINGS: Bones/joints: Normal. Soft tissues: Normal. XR/XR hand RT min 3V* [id number] IMPRESSION: No acute findings.
--- NOTE | 2023-11-07 18:53 | XRR_ITS ---
PROCEDURE INFORMATION: Exam: XR Left Hip Exam date and time: 11/07/2023 7:59 PM Age: 28 years old Clinical indication: Injury or trauma; Fall; Other: Unknown; Injury details: Tripped over toy TECHNIQUE: Imaging protocol: Radiologic exam of the left hip. Views: 2 or 3 views hip with pelvis when performed. COMPARISON: No relevant prior studies available. FINDINGS: Bones/joints: Unremarkable. No acute fracture. Soft tissues: Unremarkable. XR/XR hip LT 2-3V wo/w pel* [id number] IMPRESSION: No acute findings.
[2023-11-07 20:46] VITALS: BP 136/88; PULSE 74; RESP 14; O2SAT 99
== END 2023-11-07 20:47 | disposition home or self-care (01) ==
PROVIDERS: Emergency Provider Nurse Practitioner Family; PCP Family Medicine
DX: S70.02XA Contusion of left hip, initial encounter (principal); S63.92XA Sprain of unspecified part of left wrist and hand, initial encounter; W01.0XXA Fall on same level from slipping, tripping and stumbling without subsequent striking against object, initial encounter
CPT/HCPCS: 73130; 73502; 99284

== ENCOUNTER 2023-11-17 12:40 | Emergency (ER) | payer BC, MEDICAID, SELFPAY ==
[2023-11-17 13:09] VITALS: BP 149/98; PULSE 78; RESP 16; TEMP 36.8; O2SAT 100
--- NOTE | 2023-11-17 14:19 | ED_ITS ---
HPI - Dental/Oral General: Chief complaint: Dental/Oral Stated complaint: Tooth pain Time Seen by Provider: 11/17/23 14:07 History of Present Illness: 28-year-old female comes in today with t ooth pain. On exam patient appears nontoxic. Patient has a carious tooth to the left lower jaw. Patient reports 2 weeks ago she had some mild pain but it resolved but over the last 2 days it has worsened again and now the pain is severe. Patient appears nontoxic. Patient appears in mild to moderate pain. Review of Systems General: Reports: 10 or more systems reviewed and unremarkable except in HPI and below ENMT: Reports: dental pain Physical Exam Const: COMMON NORMALS: alert HENMT: COMMON NORMALS: normocephalic HEAD & SCALP: normocephalic MOUTH: Normal oral and palatal mucosa present TEETH & GINGIVA: Yes fair dentition and Yes gingiva abnormal (Swelling and redness noted to the second molar of the left lower jaw.) Neck/C-Spine: COMMON NORMALS: full ROM Resp: COMMON NORMALS: normal respiratory effort Cardio: COMMON NORMALS: regular rate RATE: regular rate Back/Pelvis: COMMON NORMALS: thoracic and lumbar spine normal to inspection Extremity: COMMON NORMALS: full ROM Neuro: SENSORIUM/ORIENTATION: Yes alert Skin: COMMON NORMALS: turgor normal GENERAL SKIN EXAM: turgor normal Course Vital Signs: Vital signs: Vital Signs Temperature 98.2 F 11/17/23 13:09 Pulse Rate 78 11/17/23 13:09 Respiratory Rate 16 11/17/23 13:09 Blood Pressure 149/98 11/17/23 13:09 Pulse Oximetry 100 11/17/23 13:09 Oxygen Delivery Me thod Room Air 11/17/23 13:09 [facility] - Dental/Oral Medical Decision Making 28-year-old female comes in today with right lower jaw pain. On exam patient has some significant decay to the left lower molar with some surrounding gingival swelling and erythema. Differential diagnosis includes not limited to dental caries, dental abscess, tooth ache, retropharyngeal abscess. No signs of significant swelling of the face, patient is managing secretions well. Reviewed exam with patient with recommendation for follow-up with dentist. Patient be treated with antibiotics and medications for pain. Patient was discharged home. No radiology studies performed this visit Discharge Plan Discharge Patient Disposition: Home Clinical Impression: Dental abscess, Dental caries, Toothache Condition: Stable Prescriptions: New hydrocodone-acetaminophen 5-325 mg tablet 1 tab PO Q6H PRN (Reason: pain) Qty: 7 0RF amoxicillin-pot clavulanate 875-125 mg tablet 1 tab PO BID Qty: 14 0RF No Action 28-800 mg-mcg Tablet 1 tab PO DAILY levothyroxine 88 mcg Tablet 88 mcg PO DAILY ibuprofen 800 mg Tablet 800 mg PO TID Qty: 45 0RF hydrocodone-acetaminophen 5-325 mg Tablet 1 tab PO Q4H PRN (Reason: Moderate To Severe Pain) Qty: 28 0RF ferrous sulfate 325 mg (65 mg iron) Tablet,Delayed Release (Dr/Ec) 325 mg PO BID Qty: 60 1RF Discharge Orders: Discharge ED (Routine); Ordered 11/17/23 Ordered By: Kin Montoya Referrals: Elizabeth Cabrera FNP [Primary Care Provider] - Discharge Diet: Usual diet Discharge Activity: Increase activity as tolerated Patient Instructions: Toothache (ED) Activity Restrictions/Additional Instructions: Drink plenty of water with medication. Use acetaminophen and ibuprofen to control pain. Use hydrocodone for severe pain. Follow-up with dentist for definitive care. Return to ED for new concerns. Coding Level of Care Code ED Sales Center Associate for Elizabeth Parr
[2023-11-17 14:37] VITALS: BP 123/92; PULSE 72; RESP 16; TEMP 36.8; O2SAT 100
== END 2023-11-17 14:40 | disposition home or self-care (01) ==
PROVIDERS: Emergency Provider Nurse Practitioner Family; PCP Registered Nurse
DX: K04.7 Periapical abscess without sinus (principal); K02.9 Dental caries, unspecified
CPT/HCPCS: 99283

== ENCOUNTER 2024-12-21 14:18 | Emergency (ER) | payer MEDICAID, SELFPAY ==
[2024-12-21 14:19] VITALS: BP 166/106; PULSE 98; RESP 16; TEMP 36.9; O2SAT 98; BMI 34.2
--- NOTE | 2024-12-21 14:40 | ED_ITS ---
HPI - Skin/Abscess/Foreign Bdy 2 General: Chief complaint: Skin/Abscess/Foreign Body Stated complaint: lumps on neck Time Seen by Provider: 12/21/24 14:19 Source: patient Mode of arrival: ambulatory Limitations: no limitations History of Present Illness: Patient is a 29-year-old female presents to ED today stating she woke up with knots in my neck . Patient states they were not present yesterday before she went to sleep. She has not been ill recently. No recent fevers. No recent tick bites or cat scratches. She does not complain of ear pain or sore throat. Vital signs are stable upon arrival. She is not complaining of neck stiffness or decreased range of motion. MD complaint: other ( knots in neck ) Onset (ago): hour(s) Tetanus up to date: yes Location: neck Severity: mild Relieving factors: none Exacerbating factors: none Context: none Associated symptoms: Reports no associated symptoms; Deny chills, fever(s) or vomiting Treatments prior to arrival: none Related Data Home Medications ?Medication ?Instructions ?Recorded ?Confirmed clobetasol 0.05 % scalp solution 1 applic topical BID 12/21/24 12/21/24 ketoconazole 2 % shampoo See Rx Instructions .Route . COMPLEX 12/21/24 12/21/24 levothyroxine 112 mcg tablet 112 mcg PO DAILY 12/21/24 12/21/24 Previous Rx's ?Medication ?Instructions ?Recorded ferrous sulfate 325 mg (65 mg 325 mg PO BID #60 tabs 0 04/11/21 iron) tablet,delayed release clindamycin HCl 300 mg capsule 300 mg PO Q6H 7 days #2 8 caps 12/21/24 Allergies Allergy/AdvReac Type Severity Reaction Status Date / Time No Known Allergies Allergy Verified 11/17/23 13:14 Review of Systems 2 Const: Denies: fever(s), chills, body aches, fatigue or malaise ENMT: Denies: throat pain, odynophagia, ear or mastoid pain, nasal discharge, nasal congestion or sinus pain Resp: Denies: productive cough, non-productive cough or chest congestion GI: Denies: abdominal pain or vomiting Musc: Reports: neck pain; Denies: back pain, extremity pain, extremity swelling or joint swelling Skin/Breast: Denies: rash Neuro: Denies: headache(s), numbness in extremities, weakness in extremities, sensory changes or dizziness Physical Exam 2 Const: COMMON NORMALS: no acute distress, average body habitus, patient oriented x3, no limitations, healthy appearing, alert and well nourished G ENERAL APPEARANCE: cooperative ORIENTATION/CONSCIOUSNESS: Yes awake, Yes oriented to person, Yes oriented to place and Yes oriented to time HENMT: COMMON NORMALS: normocephalic, atraumatic, external ears normal, EAC's normal, TM's normal bilaterally and Normal external nose present HEAD & SCALP: normal to inspection, normocephalic and atraumatic FACE & SINUS: n ormal facial exam and sinuses nontender NOSE: Normal external nose present EXTERNAL EAR: Yes external ears normal and Yes mastoids normal EXTERNAL AUDITORY CANAL: EAC's normal TYMPANIC MEMBRANE: TM's normal bilaterally M OUTH: Normal oral and palatal mucosa present and lip normal TEETH & GINGIVA: Yes other (no obvious dental infection) THROAT: posterior oropharynx normal and tonsils normal Eye: GENERAL EYE: appearance normal, both eyes and all related structures Neck/C-Spine: COMMON NORMALS: full ROM, supple, no meningeal signs, no JVD, Thyroid normal and No carotid bruits GENERAL: Yes normal visual inspection and Yes lymphadenopathy Lymphadenopathy location: anterior cervical THYROID: Thyroid normal Chest: COMMONS NORMALS: normal inspection of the chest and normal palpation of entire chest wall Resp: COMMON NORMALS: normal respiratory effort and clear to auscultation bilaterally AUSCULTATION: clear to auscultation bilaterally Cardio: COMMON NORMALS: no JVD, regular rate and regular rhythm RATE: r egular rate RHYTHM: regular rhythm GI: COMMON NORMALS: Normal to inspection, nondistended, normoactive bowel sounds present, Soft to palpation, non-tender, No hepatosplenomegaly present and no masses PALPATION: Yes Soft to palpation and Yes No hepatosplenomegaly present : COMMON NORMALS: Yes no CVA tenderness BLADDER/KIDNEY EXAM: Yes no CVA tenderness Back/Pelvis: COMMON NORMALS: no CVA tenderness Extremity: COMMON NORMALS: normal to inspection GENERAL: Yes normal exam except as noted Neuro: COMMON NORMALS: patient oriented x3, moves all extremities, no focal motor deficits, no sensory deficits noted and gait normal S ENSORIUM/ORIENTATION: Yes alert, Yes oriented to person, Yes oriented to place and Yes oriented to time MENINGEAL SIGNS: Yes no meningeal signs Skin: COMMON NORMALS: no rashes or lesions noted GENERAL SKIN EXAM: no rashes or lesions noted Course 2 Vital Signs: Vital signs: Vital Signs Temperature 98.4 F 12/21/24 14:19 Pulse Rate 89 12/21/24 15:13 Respiratory Rate 16 12/21/24 14:19 Blood Pressure 156/81 12/21/24 15:13 Pulse Oximetry 99 12/21/24 15:13 Oxygen Delivery Me thod Room Air 12/21/24 15:13 MDM - Skin/Abscess/Foreign Bdy Medicial Decision Making Patient is a 29-year-old female who states she woke up with lymphadenopathy of her neck. She is otherwise asymptomatic. Her blood work here overall is unremarkable. Will place patient on prophylactic antibiotics over the course of the next week. Recommend follow-up with primary care later this week/early next week for reevaluation. Medical Records I reviewed the patient's medical records. Lab Data I reviewed the patient's lab results. 12/21/24 15:05 12/21/24 15:05 Laboratory Results WBC 11.08 10^3/uL (3.29-11.43) 12/21/24 15:05 RBC 4.27 10^6/uL (3.85-5.65) 12/21/24 15:05 Hgb 11.30 g/dL (11.27-16.99) 12/21/24 15:05 Hct 35.7 % (36-47) L 12/21/24 15:05 MCV 83.6 fl (85-98) L 12/21/24 15:05 MCH 26.5 pg (27-33) L 12/21/24 15:05 MCHC 31.7 g/dL (30-55) 12/21/24 15:05 RDW 13.5 % (12.1-15.1) 12/21/24 15:05 Plt Count 267 10^3/cmm (157-399) 12/21/24 15:05 MPV 10.0 fL (7.4-10.4) 12/21/24 15:05 Neut % (Auto) 75.1 % 12/21/24 15:05 Lymph % (Auto) 16.4 % 12/21/24 15:05 [place] % (Auto) 3.3 % 12/21/24 15:05 Eos % (Auto) 4.4 % 12/21/24 15:05 Baso % (Auto) 0.4 % 12/21/24 15:05 Neut # (Auto) 8.32 10^3/uL (1.8-7.7) H 12/21/24 15:05 Lymph # (Auto) 1.8 10^3/uL (0.8-4.8) 12/21/24 15:05 [place] # (Auto) 0.4 10^3/uL (0.2-0.9) 12/21/24 15:05 Eos # (Auto) 0.5 10^3/uL (0.0-0.8) 12/21/24 15:05 Baso # (Auto) 0.0 10^3/uL (0.0-0.1) 12/21/24 15:05 Nucleated RBC % (auto) 0 % 12/21/24 15:05 Nucleated RBCs # 0.0 /100WBC 12/21/24 15:05 Sodium 142 mmol/L (136-145) 12/21/24 15:05 Potassium 3.6 mmol/L (3.5-5.1) 12/21/24 15:05 Chloride 105 mmol/L (98-107) 12/21/24 15:05 Carbon Dioxide 23 mmol/L (22-29) 12/21/24 15:05 Anion Gap 17.6 (5-19) 12/21/24 15:05 BUN 9 mg/dL (6-20) 12/21/24 15:05 Creatinine 0.6 mg/dL (0.5-0.9) 12/21/24 15:05 GFR Calculation 117.4 mL/min (90-130) 12/21/24 15:05 Glucose 95 mg/dL (65-115) 12/21/24 15:05 Calculated Osmolality 292 mOsm/kg (285-295) 12/21/24 15:05 Calcium 8.7 mg/dL (8.5-10.5) 12/21/24 15:05 Total Bilirubin 0.8 mg/dL (0.15-1.2) 12/21/24 15:05 AST 12 U/L (0-32) 12/21/24 15:05 ALT 8 U/L (0-33) 12/21/24 15:05 Alkaline Phosphatase 79 U/L (35-105) 12/21/24 15:05 Total Protein 7.3 g/dL (6.6-8.7) 12/21/24 15:05 Albumin 4.3 g/dL (3.5-5.2) 12/21/24 15:05 Globulin 3.0 g/dL (1.3-4.6) 12/21/24 15:05 HCG, Qual Negative (Negative) 12/21/24 15:05 No radiology studies performed this visit Discharge Plan Discharge Patient Disposition: Home Clinical Impression: Cervical lymphadenopathy Condition: Stable Prescriptions: New clindamycin HCl 300 mg capsule 300 mg PO Q6H 7 Days Qty: 28 0RF No Action ferrous sulfate 325 mg (65 mg iron) Tablet,Delayed Release (Dr/Ec) 325 mg PO BID Qty: 60 1RF ketoconazole 2 % shampoo See Rx Instructions .ROUTE .COMPLEX Rx Instructions: SHAMPOO HAIR WITH SHAMPOO EVERY OTHER DAY, RINSE WELL. clobetasol 0.05 % solution 1 applic TOPICAL BID levothyroxine 112 mcg tablet 112 mcg PO DAILY Discharge Orders: Discharge ED (Routine); Ordered 12/21/24 Ordered By: Alysha Barrios Referrals: Elizabeth Cabrera FNP [Primary Care Provider, Nurse Practitioner] Patient Instructions: Lymphadenopathy (ED) Activity Restrictions/Additional Instructions: As we discussed, we will place you on antibiotics over the course of the next week. Please follow-up with primary care if lymph nodes do not begin to improve and certainly if they enlarge or become more painful. Print Language: Greek Coding Level of Care Code ED Electric Meter Installer Helper for Elizabeth Parr
[2024-12-21 15:13] VITALS: BP 156/81; PULSE 89; O2SAT 99
[2024-12-21 15:14] LABS: Basophils % 0.4 %; Eosinophils # 0.5 10^3/uL (0.0-0.8); Eosinophils % 4.4 %; Hematocrit 35.7 % (36-47); Lymphocytes # 1.8 10^3/uL (0.8-4.8); Lymphocytes % 16.4 %; Mean Corpuscular HGB Conc 31.7 g/dL (30-55); Mean Corpuscular Hemoglobin 26.5 pg (27-33); Mean Corpuscular Volume 83.6 fl (85-98); Monocytes # 0.4 10^3/uL (0.2-0.9); Monocytes % 3.3 %; Neutrophils # 8.32 10^3/uL (1.8-7.7); Neutrophils % 75.1 %; Nucleated Red Blood Cells % 0 %; Platelet Count 267 10^3/cmm (157-399); Red Blood Count 4.27 10^6/uL (3.85-5.65); Red Cell Distribution Width 13.5 % (12.1-15.1); White Blood Count 11.08 10^3/uL (3.29-11.43)
[2024-12-21 15:25] LABS: HCG, Serum Qual Negative (Negative)
[2024-12-21 15:34] LABS: Alanine Aminotransferase 8 U/L (0-33); Albumin Level 4.3 g/dL (3.5-5.2); Alkaline Phosphatase 79 U/L (35-105); Anion Gap 17.6 (5-19); Aspartate Amino Transferase 12 U/L (0-32); Blood Urea Nitrogen 9 mg/dL (6-20); Calcium 8.7 mg/dL (8.5-10.5); Carbon Dioxide 23 mmol/L (22-29); Chloride 105 mmol/L (98-107); Creatinine Clr Calc Pharmacy 138.4943; Glomerular Filtration Rate 117.4 mL/min (90-130); Glucose 95 mg/dL (65-115); Osmolality Calculated 292 mOsm/kg (285-295); Potassium 3.6 mmol/L (3.5-5.1); Sodium 142 mmol/L (136-145); Total Bilirubin 0.8 mg/dL (0.15-1.2); Total Protein 7.3 g/dL (6.6-8.7)
[2024-12-21 16:21] VITALS: BP 159/105; PULSE 87; O2SAT 100
== END 2024-12-21 16:23 | disposition home or self-care (01) ==
PROVIDERS: Emergency Provider Physician Assistant; PCP Registered Nurse
DX: R59.1 Generalized enlarged lymph nodes (principal)
CPT/HCPCS: 36415; 80053; 84703; 85025; 99283